=== PATIENT | male | born 1965 | race Caucasian/White ===

== ENCOUNTER 2023-09-03 06:34 | Outpatient (CLI) | payer BC, SELFPAY ==
--- NOTE | ~2023-09-03 | MR_ITS ---
EXAMINATION: MR pelvis wo/w con DATE: 09/03/2023 08:14 INDICATION: Malignant neoplasm of prostate. TECHNIQUE: Magnetic resonance imaging (MRI) of the pelvis was performed without and with 12 mL MultiH ance intravenous contrast. COMPARISON: None. FINDINGS: There are changes of prostatectomy. There are no pathologically enlarged lymph nodes. There is no lu e intraperitoneal fluid. Maternal in left internal inguinal ring may be changes of left inguinal august ia repair. IMPRESSION: 1. Prostatectomy. Reviewed, dictated and finalized at location E. IMPRESSION: 1. Prostatectomy.
== END 2023-09-03 06:35 | disposition home or self-care (01) ==
PROVIDERS: Visit Provider Radiology Radiation Oncology
DX: C61 Malignant neoplasm of prostate (principal)
CPT/HCPCS: 72197; A9577